=== PATIENT | female | born 1940 | race Caucasian/White ===

== ENCOUNTER 2018-12-29 13:52 | Outpatient (CLI) | payer OTHER ==
[~2018-12-29 13:52] MED LIST: ACTOS30 MG PO; ALENDRONATE 70 MG; AMARYL; ATENOLOL100 MG; AVALIDE 150-12.1 TA1 PO; AVALIDE 300-12.1 TAB; BENADRYL25 MG PO; CALTRATE 600600 MG PO; GLUCOVANCE 1.251 TAB PO; METFORMIN HCL500 M2; PEPCID40 MG PO; PNEU16DI2; TOPROL XL25 MG PO
== END 2018-12-29 13:54 | disposition home or self-care (01) ==
LOC: RAD 13:52
DX: M19.072 Primary osteoarthritis, left ankle and foot (principal)

== ENCOUNTER 2019-02-11 10:11 | Outpatient (CLI) | payer OTHER | END 2019-02-11 14:17 | disposition home or self-care (01) | LOC: LAB 10:11 | DX: E55.9 Vitamin D deficiency, unspecified (principal); M85.9 Disorder of bone density and structure, unspecified; E56.1 Deficiency of vitamin K ==

== ENCOUNTER 2019-07-05 10:17 | Outpatient (CLI) | payer OTHER | END 2019-07-05 10:32 | disposition home or self-care (01) | LOC: LAB 10:17 | DX: D64.89 Other specified anemias (principal); E88.89 Other specified metabolic disorders; D68.8 Other specified coagulation defects; N39.0 Urinary tract infection, site not specified; Z22.322 Carrier or suspected carrier of Methicillin resistant Staphylococcus aureus; Z76.89 Persons encountering health services in other specified circumstances; I10 Essential (primary) hypertension ==

== ENCOUNTER 2019-09-25 09:46 | Emergency (ER) | payer OTHER ==
[~2019-09-25] VITALS: Ht 121.9 cm; Wt 68.9 kg
[2019-09-25] MEDS ORDERED: GLIPIZIDE XL10 MG (10:08)
[2019-09-25] MEDS ORDERED: TOPROL XL50 M1 (10:09)
== END 2019-09-25 11:08 | disposition home or self-care (01) ==
LOC: ER 09:46
DX: L25.9 Unspecified contact dermatitis, unspecified cause (principal)

== ENCOUNTER → 2019-10-08 | Outpatient (CLI) | payer OTHER ==
[~2019-10-08] MED LIST changes: +GLIPIZIDE XL10 MG; +TOPROL XL50 M1
== END | disposition home or self-care (01) ==
LOC: NUCLEAR 07:00
DX: R94.31 Abnormal electrocardiogram [ECG] [EKG] (principal); I20.8 Other forms of angina pectoris
CPT/HCPCS: 78452; 93017; A9500; J0153

== ENCOUNTER 2020-08-17 14:09 | Emergency (ER) | payer OTHER ==
[~2020-08-17] VITALS: Ht 149.9 cm; Wt 72.6 kg
[2020-08-17] MEDS ORDERED: ADULT LOW DOSE81 M1 (14:38)
[2020-08-17] MEDS ORDERED: AVALIDE 300-121 EACH PO (14:38)
[2020-08-17] MEDS ORDERED: TUSNEL DIABETI118 ML PO (17:02)
[2020-08-17] MEDS ORDERED: ZITHROMAX500 MG PO (17:02)
[2020-08-17] MEDS ORDERED: CLARITIN10 M1 PO (17:02)
== END 2020-08-17 17:30 | disposition home or self-care (01) ==
LOC: ER 14:09
DX: B34.9 Viral infection, unspecified (principal); R09.81 Nasal congestion; R50.9 Fever, unspecified; Z03.818 Encounter for observation for suspected exposure to other biological agents ruled out

== ENCOUNTER 2021-07-24 16:45 | Inpatient (IN) | payer OTHER ==
[~2021-07-24] VITALS: Ht 152.4 cm; Wt 72.6 kg
[~2021-07-24 16:45] MED LIST changes: +ADULT LOW DOSE81 M1; +AVALIDE 300-121 EACH PO; +CLARITIN10 M1 PO; +TUSNEL DIABETI118 ML PO; +ZITHROMAX500 MG PO
[2021-07-30] MEDS ORDERED: CAPOTEN12.5 MG PO (17:17)
[2021-07-30] MEDS ORDERED: ISOSORBIDE MONO30 MG PO (17:18)
[2021-07-30] MEDS ORDERED: CARVEDILOL6.25 MG PO (17:18)
[2021-07-30] MEDS ORDERED: TUSSIN DM LIQU118 ML PO (17:20)
== END 2021-07-30 23:01 | disposition home or self-care (01) | DRG 311 ==
LOC: ER 16:45 → ICU-2 23:38 → ICU 23:38 → MEDI 07-27 17:14
PROVIDERS: ADMIT Internal Medicine; ATTEND Internal Medicine
PROC: B24BZZZ Ultrasonography of Heart with Aorta (ICD-10-PCS; principal; 2021-07-25)
PROC: 4A12X4Z Monitoring of Cardiac Electrical Activity, External Approach (ICD-10-PCS; 2021-07-27)
DX: I24.9 Acute ischemic heart disease, unspecified (principal); I50.31 Acute diastolic (congestive) heart failure; I42.8 Other cardiomyopathies; I11.0 Hypertensive heart disease with heart failure; I25.10 Atherosclerotic heart disease of native coronary artery without angina pectoris; R07.89 Other chest pain; I48.91 Unspecified atrial fibrillation; E11.9 Type 2 diabetes mellitus without complications; Z79.4 Long term (current) use of insulin; Z20.822 Contact with and (suspected) exposure to COVID-19

== ENCOUNTER 2021-11-21 09:13 | Outpatient (CLI) | payer OTHER ==
[~2021-11-21 09:13] MED LIST changes: +CAPOTEN12.5 MG PO; +CARVEDILOL6.25 MG PO; +ISOSORBIDE MONO30 MG PO; +TUSSIN DM LIQU118 ML PO
== END 2021-11-21 09:14 | disposition home or self-care (01) ==
LOC: NUCLEAR 09:13
PROVIDERS: ATTEND Internal Medicine
DX: I50.22 Chronic systolic (congestive) heart failure (principal)

== ENCOUNTER 2023-02-01 14:00 | Emergency (ER) | payer OTHER ==
[~2023-02-01] VITALS: Ht 157.5 cm; Wt 54.4 kg
== END 2023-02-01 18:57 | disposition home or self-care (01) ==
LOC: ER 14:01
DX: R07.81 Pleurodynia (principal)
CPT/HCPCS: 71111; 96372; 99283; J1885

== ENCOUNTER 2023-08-06 11:33 | Emergency (ER) | payer OTHER ==
[~2023-08-06] VITALS: Ht 152.4 cm; Wt 64.4 kg
[2023-08-06] MEDS ORDERED: KETOROLAC TROMETHAMINE 30 MG VIAL IM STA (14:41)
[2023-08-06] MEDS ORDERED: ADVIL DUAL ACT1 EACH PO (17:17)
[2023-08-06] MEDS ORDERED: METAXALONE400 MG PO (17:17)
== END 2023-08-06 17:21 | disposition home or self-care (01) ==
LOC: ER 11:33
DX: M54.9 Dorsalgia, unspecified (principal)
CPT/HCPCS: 72100; 96372; 99283; J1885

== ENCOUNTER 2024-08-26 11:32 | Outpatient (CLI) | payer OTHER ==
[~2024-08-26 11:32] MED LIST changes: +ACID REDUCER20 M1 PO; +ADVIL DUAL ACT1 EACH PO; +DICLOFENAC POTA50 MG PO; +METAXALONE400 MG PO; +RELAFEN DS1000 MG PO
== END 2024-08-26 11:35 | disposition home or self-care (01) ==
LOC: RAD 11:32
PROVIDERS: ATTEND Physical Medicine & Rehabilitation
DX: M54.2 Cervicalgia (principal); M54.59 Other low back pain